=== PATIENT | male | born 1935 | race American Indian/Alaskan Native ===

== ENCOUNTER 2016-06-14 08:53 | Emergency (ER) | payer MEDICARE ==
[2016-06-14 09:54] LABS: Basophils % (Auto) 0.4 % (0.0-1.8); Hematocrit 40.7 % (35.5-45.6); Hemoglobin 13.2 gm/dl (11.8-15.2); Mean Corpuscular HGB Conc 32 % (32-34); Mean Corpuscular Hemoglobin 27 pg (28-32); Mean Corpuscular Volume 84 fl (84-94); Platelet Count 241 K/mm3 (140-440); Red Blood Count 4.82 M/mm3 (3.65-5.03); Red Cell Distribution Width 15.8 % (13.2-15.2)
[2016-06-14 10:09] LABS: Anion Gap 18 mmol/L; BUN/Creatinine Ratio 22.22; Blood Urea Nitrogen 20 mg/dL (9-20); Carbon Dioxide 25 mmol/L (22-30); Chloride 98.7 mmol/L (98-107); Glucose 126 mg/dL (75-100); Potassium 4.7 mmol/L (3.6-5.0); Sodium 137 mmol/L (137-145)
[2016-06-14 10:51] LABS: Bacteria,Urine 1+ /HPF (Negative); Bilirubin,Urine NEG (Negative); Blood,Urine NEG (Negative); Ketones,Urine NEG (Negative); Leukocyte Esterase,Urine NEG (Negative); Mucus,Urine 2+ /HPF; Nitrite,Urine NEG (Negative); Protein,Urine <15 mg/dL mg/dL (Negative); Urobilinogen,Urine < 2.0 mg/dL (<2.0)
--- NOTE | 2016-06-14 16:24 | Emergency Department Report ---
HPI - General Chief Complaint: Weakness Time Seen by Provider: 06/14/16 15:57 - HPI HPI: This is an 81-year-old Afro-[place] male presents the emergency department after he woke up this morning and developed some nausea, chills and some generalized dizziness and no weakness as if he was going to pass out. He never had any vomiting and there was no syncopal episode. He called his to come back to the house and then he came to the emergency department for further evaluation. Patient has been in the emergency department for 7 hours and currently says that he is asymptomatic and back at baseline. Patient later admits that he took a rwcc-fcy-vdplioa sexual enhancement pill made up of different herbs and supplements and use this for the first time last night. He never had any chest pain, shortness of breath, headache, vision change, slurred speech or any neurological deficits. He has a history of [id number] diabetes and a remote history of prostate cancer. His primary care physician is Dr. Sandhu. ED Past Medical Hx - Past Medical History Hx Hypertension: Yes Hx Diabetes: Yes Hx Liver Disease: No Hx Renal Disease: No Hx Seizures: No Hx Tuberculosis: No Hx HIV: No Additional medical history: colitis - Surgical History Additional Surgical History: hemmorhoid, Prostate seed implants - Social History Smoking Status: Never Smoker Substance Use Type: None - Medications Home Medications: Home Medications Medication Instructions Recorded Confirmed Last Taken Type Ropinirole HCl 0.5 mg PO BID 09/06/14 11/11/14 Unknown History metFORMIN [Glucophage] 1,000 mg PO BID 09/06/14 11/11/14 Unknown History sulfaSALAzine [Azulfidine] 1,000 mg PO TID 06/14/16 06/14/16 Unknown History ED Review of Systems ROS: Stated complaint: GENERAL WEAKNESS Other details as noted in HPI Comment: All other systems reviewed and negative Constitutional: chills. denies: fever Eyes: denies: eye pain, eye discharge, vision change ENT: denies: ear pain, throat pain Respiratory: denies: cough, shortness of breath, wheezing Cardiovascular: denies: chest pain, palpitations Gastrointestinal: nausea. denies: vomiting Genitourinary: denies: urgency, dysuria Musculoskeletal: denies: back pain, joint swelling, arthralgia Skin: denies: rash, lesions Neurological: other (dizziness). denies: headache, numbness Physical Exam - Physical Exam Vital Signs: Vital Signs 06/14/16 06/14/16 06/14/16 09:13 15:54 15:56 Temperature 97.3 F L Pulse Rate 68 72 70 Respiratory 18 21 Rate Blood Pressure 110/71 O2 Sat by Pulse 100 97 Oximetry 06/14/16 06/14/16 15:57 15:58 Temperature Pulse Rate 70 70 Respiratory 20 15 Rate Blood Pressure 114/70 114/70 O2 Sat by Pulse 97 97 Oximetry Physical Exam: GENERAL: The patient is well-developed well-nourished. HEENT: Normocephalic. Atraumatic. Extraocular motions are intact. Patient has moist mucous membranes. Pupils equal reactive to light bilaterally. No nystagmus. Tongue is midline. NECK: Supple. Trachea is midline.. CHEST/LUNGS: Clear to auscultation. There is no respiratory distress noted. HEART/CARDIOVASCULAR: Regular. There is no tachycardia. There is no gallop rub or murmur. ABDOMEN: Abdomen is soft, nontender. Patient has normal bowel sounds. There is no abdominal distention. SKIN: There is no rash. There is no edema. There is no diaphoresis. NEURO: The patient is awake, alert, and oriented. The patient is cooperative. The patient has no focal neurologic deficits. The patient has normal speech and gait. Cranial nerves II through XII grossly intact. No dysmetria. No pronator drift. MUSCULOSKELETAL: There is no tenderness or deformity. There is no limitation range of motion. There is no evidence of acute injury. Muscle strength 5 out of 5 for upper and lower extremity bilaterally. Cap refill less than 2 seconds. ED Course Vital Signs 06/14/16 06/14/16 06/14/16 09:13 15:54 15:56 Temperature 97.3 F L Pulse Rate 68 72 70 Respiratory 18 21 Rate Blood Pressure 110/71 O2 Sat by Pulse 100 97 Oximetry 06/14/16 06/14/16 15:57 15:58 Temperature Pulse Rate 70 70 Respiratory 20 15 Rate Blood Pressure 114/70 114/70 O2 Sat by Pulse 97 97 Oximetry ED Medical Decision Making - Lab Data Result diagrams: 06/14/16 09:39 06/14/16 09:39 - EKG Data -: EKG Interpreted by Me - EKG Data When compared to previous EKG there are: previous EKG unavailable Interpretation: other (general rhythm, 69 bpm, nonspecific T-wave no ST elevation OR) - Medical Decision Making 81-year-old male presents with transient nausea without vomiting, chills, nonspecific dizziness and feeling like he might pass out, without ever having a syncopal episode. Patient is now asymptomatic and back to baseline. There is no focal, motor or sensory deficits seen. Cranial nerves are intact. Heart and lungs sound normal auscultation. EKG does not show any signs of ST elevation OR or ischemia. Patient's labs are unremarkable including no signs of infection, electrolyte abnormalities, renal insufficiency, glucose abnormalities and the patient has had negative troponins 3. Patient is been encouraged to stay away from any unknown [id number] medications. He is to follow-up with his primary care doctor in the next few days. He is to return to the emergency department with any return of symptoms or any acute distress. - Differential Diagnosis hypoglycemia, hypotension, OR, electrolyte abnormalities, dysrhythmia Critical Care Time: No Critical care attestation.: If time is entered above; I have spent that time in minutes in the direct care of this critically ill patient, excluding procedure time. ED Disposition Clinical Impression: Near syncope, Lightheaded Disposition: DISCHARGED TO HOME OR SELFCARE Is pt being admited?: No Condition: Good Instructions: Near Syncope (ED), Lightheadedness (ED) Additional Instructions: Please follow-up with the primary care in the next few days. Return to the emergency department with any worsening of your symptoms or any acute distress. Please stay away from any medications or [id number]-kaw-rkfoshd supplements that are not approved or prescribed by a physician. Referrals: PRIMARY CAREMD [Primary Care Provider] - 3-5 Days Time of Disposition: 16:25
[2016-06-14 16:30] VITALS: BP 120/76
== END 2016-06-14 16:30 | disposition home or self-care (01) ==
LOC: ED 08:53 → EDBD 08:53 → ED 16:30
DX: R55 Syncope and collapse (principal); R11.0 Nausea; R53.1 Weakness; I10 Essential (primary) hypertension; E11.9 Type 2 diabetes mellitus without complications; Z79.899 Other long term (current) drug therapy
CPT/HCPCS: 36415; 80048; 81001; 82962; 84484; 85025; 93005; 93010; 99284